=== PATIENT | female | born 1980 | race Caucasian/White ===

== ENCOUNTER 2019-02-06 17:24 | Emergency (ER) | payer BC, MEDICAID ==
[2019-02-06 17:34] VITALS: BP 131/80
[2019-02-06 17:55] LABS: BILIRUBIN,URINE NEGATIVE (NEGATIVE); GLUCOSE, URINE (UA) NEGATIVE (NEGATIVE); KETONES,URINE (UA) NEGATIVE (NEGATIVE); LEUKOCYTE ESTERASE, URINE SMALL (NEGATIVE); NITRITE,URINE NEGATIVE (NEGATIVE); OCCULT BLOOD,URINE MODERATE (NEGATIVE); PROTEIN,URINE NEGATIVE (NEGATIVE); UROBILINOGEN,URINE 0.2 (NORMAL) E.U./dL (NORMAL)
[2019-02-06 17:56] LABS: HCG UR QUAL NEGATIVE
[2019-02-06 17:57] LABS: CLARITY,URINE CLEAR (CLEAR)
[2019-02-06] MEDS ORDERED: cephALEXin 250 MG CAPSULE PO STA (18:10)
--- NOTE | 2019-02-06 18:11 | ED Physician Documentation ---
History of Present Illness - Stated complaint Stated Complaint: FEMALE - Chief complaint Chief Complaint: UTI - History obtained from History obtained from: Patient - History of Present Illness Timing: How many days ago (4) Pain level max: 3 Pain level now: 2 - Additonal information Additional information: 38-year-old female with dysuria, urinary frequency for the past 4 days. Concerned about potential UTI. No fevers. No abdominal pain. No back pain. No vaginal discharge or bleeding. She has breast-feeding Review of Systems Constitutional: denies: Fever, Chills Respiratory: denies: Cough GI: denies: Vomiting : reports: Dysuria, Frequency, Hesitancy. denies: Now EGA Skin: denies: Rash Musculoskeletal: denies: Neck pain, Back pain Neurologic: denies: Headache PD PAST MEDICAL HISTORY - Past Medical History Past Medical History: No Other Past Medical History: DENIES - Past Surgical History Past Surgical History: No - Present Medications Home Medications: Ambulatory Orders Medication Instructions Recorded Confirmed Cephalexin [Keflex] 500 mg PO Q6H #20 capsule 02/06/19 - Allergies Allergies/Adverse Reactions: Allergies Allergy/AdvReac Type Severity Reaction Status Date / Time Sulfa (Sulfonamide Allergy Anaphylaxis Verified 02/06/19 17:34 Antibiotics) - Social History Does the pt smoke?: No Smoking Status: Never smoker Does the pt drink ETOH?: No Does the pt have substance abuse?: No - Immunizations Immunizations are current?: Yes PD ED PE NORMAL - Vitals Vital signs reviewed: Yes - General General: Alert and oriented X 3, No acute distress - HEENT HEENT: Moist mucous membranes - Neck Neck: Supple, no meningeal sign - Cardiac Cardiac: RRR - Respiratory Respiratory: No respiratory distress, Clear bilaterally - Abdomen Abdomen: Soft, Non tender, Non distended - Back Back: No CVA TTP - Derm Derm: Warm and dry, No rash - Neuro Neuro: Alert and oriented X 3 Results - Vitals Vitals: Vital Signs - 24 hr 02/06/19 17:32 Temperature 36 C L Heart Rate 82 Respiratory 18 Rate Blood Pressure 131/80 H O2 Saturation 98 Oxygen O2 Source Room air - Labs Labs: Laboratory Tests 02/06/19 02/06/19 17:30 17:30 Urine Color YELLOW Urine Clarity CLEAR Urine pH 6.0 Ur Specific [place] <=1.005 <=1.005 Urine Protein NEGATIVE Urine Glucose (UA) NEGATIVE Urine Ketones NEGATIVE Urine Occult Blood MODERATE H Urine Nitrite NEGATIVE Urine Bilirubin NEGATIVE Urine Urobilinogen 0.2 (NORMAL) Ur Leukocyte Esterase SMALL H Urine RBC 0-5 Urine WBC 6-10 H Ur Squamous Epith Cells MOD Squamous H Urine Bacteria Rare Ur Microscopic Review INDICATED Urine Culture Comments NOT INDICATED Urine HCG, Qual NEGATIVE PD MEDICAL DECISION MAKING - ED course Complexity details: reviewed results, considered differential, d/w patient ED course: Patient with a UTI. Will place on antibiotics. She is well-appearing, nontoxic. Afebrile. Patient counseled regarding signs and symptoms for which I believe and urgent re-evaluation would be necessary. Patient with good understanding of and agreement to plan and is comfortable going home at this time This document was made in part using voice recognition software. While efforts are made to proofread this document, sound alike and grammatical errors may occur. Departure - Departure Disposition: 01 Home, Self Care Clinical Impression: Urinary tract infection Qualifiers: Urinary tract infection type: acute cystitis Hematuria presence: without hematuria Qualified Code(s): N30.00 - Acute cystitis without hematuria Condition: Good Instructions: ED UTI Cystitis Female Follow-Up: VERONICA STARR MD [Primary Care Provider] - As Needed Prescriptions: Cephalexin [Keflex] 500 mg PO Q6H #20 capsule Comments: Take all antibiotics until gone. Return if you worsen. Your prescription was sent to [facility] in [facility]. Discharge Date/Time: 02/06/19 18:18
[2019-02-06 18:13] LABS: BACTERIA,URINE Rare /HPF (None Seen); RBC,URINE 0-5 /HPF (0-5); SQUAMOUS EPITHELIAL CELL,UR MOD Squamous (<= Few)
== END 2019-02-06 18:18 | disposition home or self-care (01) ==
LOC: ED 17:24
DX: N30.00 Acute cystitis without hematuria (principal)
CPT/HCPCS: 81001; 81003; 81025; 87086; 99283; 99284

== ENCOUNTER 2019-07-16 10:29 | Emergency (ER) | payer MEDICAID ==
[2019-07-16] MEDS ORDERED: ALBUTEROL NEB 2.5 MG/3 ML INH STA (12:23)
--- NOTE | 2019-07-16 12:40 | ED Physician Documentation ---
PD HPI URI - Stated complaint Stated Complaint: SOA - Chief complaint Chief Complaint: Resp - History obtained from History obtained from: Patient - History of Present Illness Timing - onset: How many weeks ago (1.5) Timing duration: Weeks (1.5) Timing details: Gradual onset Pain level max: 3 Pain level now: 2 Associated symptoms: Nasal congestion, Rhinorrhea, Dry cough, Dyspnea (Wheezing). No: Fever, Chills, Ear pain, Sinus pain, Sore throat Contributing factors: Sick contact Improves by: Rest, MDI/nebulizer (Tried her son's albuterol inhaler and that seemed to help her.) Worsened by: Activity, Breathing Similar symptoms before: Diagnosis (States has had asthma in the past) Review of Systems Constitutional: denies: Fever Respiratory: reports: Cough, Wheezing. denies: Hemoptysis GI: denies: Abdominal Pain, Nausea, Vomiting, Diarrhea : denies: Dysuria, Now EGA Musculoskeletal: denies: Neck pain Neurologic: denies: Focal weakness, Numbness, Head injury PD PAST MEDICAL HISTORY - Past Medical History Past Medical History: No - Past Surgical History Past Surgical History: No - Present Medications Home Medications: Ambulatory Orders Medication Instructions Recorded Confirmed Cephalexin [Keflex] 500 mg PO Q6H #20 capsule 02/06/19 Albuterol Sulf [Ventolin Hfa 1 - 2 puffs INH Q4HR PRN #1 inhaler 07/16/19 Inhaler] Benzonatate [Tessalon Perle] 100 - 200 mg PO TID PRN #30 capsule 07/16/19 predniSONE [Prednisone] 40 mg PO DAILY #10 tablet 07/16/19 - Allergies Allergies/Adverse Reactions: Allergies Allergy/AdvReac Type Severity Reaction Status Date / Time Sulfa (Sulfonamide Allergy Anaphylaxis Verified 07/16/19 10:40 Antibiotics) - Social History Does the pt smoke?: No Smoking Status: Never smoker Does the pt drink ETOH?: No Does the pt have substance abuse?: No - Immunizations Immunizations are current?: Yes PD ED PE NORMAL - Vitals Vital signs reviewed: Yes - General General: Alert and oriented X 3, No acute distress, Well developed/nourished - HEENT HEENT: Moist mucous membranes - Neck Neck: Supple, no meningeal sign - Cardiac Cardiac: RRR - Respiratory Respiratory: No respiratory distress, Other (Wheezing, right lower lobe) - Abdomen Abdomen: Soft, Non tender, Non distended - Derm Derm: Warm and dry, No rash - Neuro Neuro: Alert and oriented X 3 - Psych Psych: Normal mood, Normal affect Results - Vitals Vitals: Vital Signs - 24 hr 07/16/19 07/16/19 07/16/19 10:36 12:42 13:53 Temperature 37.1 C 36.7 C Heart Rate 83 84 81 Respiratory 15 14 16 Rate Blood Pressure 142/77 H 113/75 O2 Saturation 100 98 Oxygen O2 Source Room air - Rads (name of study) Chest x-ray Radiology: Prelim report reviewed, EMP read contemporaneously, See rad report (no acute disease) PD MEDICAL DECISION MAKING - ED course Complexity details: reviewed results, re-evaluated patient, considered differential, d/w patient ED course: Patient is well appearing, non-toxic. Afebrile. No hypoxia. no resp distress. Feels better after nebulizer treatment. We will continue supportive care and follow-up with her doctor. Patient counseled regarding signs and symptoms for which I believe and urgent re-evaluation would be necessary. Patient with good understanding of and agreement to plan and is comfortable going home at this time This document was made in part using voice recognition software. While efforts are made to proofread this document, sound alike and grammatical errors may occur. Departure - Departure Disposition: 01 Home, Self Care Clinical Impression: Viral URI Condition: Good Instructions: ED Viral Syndrome Follow-Up: VERONICA STARR MD [Primary Care Provider] - Within 1 week (if not better) Prescriptions: Albuterol Sulf [Ventolin Hfa Inhaler] 1 - 2 puffs INH Q4HR PRN #1 inhaler PRN Reason: Shortness Of Air/Wheezing Benzonatate [Tessalon Perle] 100 - 200 mg PO TID PRN #30 capsule PRN Reason: Cough predniSONE [Prednisone] 40 mg PO DAILY #10 tablet Comments: Use the medications as prescribed. Return if you worsen. Follow-up with your doctor for further care. Discharge Date/Time: 07/16/19 13:53
--- NOTE | 2019-07-16 13:22 | XRAY Report ---
Reason: cough Procedure Date: 07/16/2019 Accession Number: [id number] / [id number] Procedure: XR - Chest 2 View X-Ray CPT Code: 91515 Final Report FULL RESULT: EXAM: CHEST RADIOGRAPHY EXAM DATE: 07/16/2019 12:54 PM. CLINICAL HISTORY: Cough. COMPARISON: None. TECHNIQUE: 2 views. FINDINGS: Lungs/Pleura: No focal opacities evident. No pleural effusion. No pneumothorax. Normal volumes. Mediastinum: Heart and mediastinal contours are unremarkable. Other: None. IMPRESSION: Negative chest RADIA
[2019-07-16 13:53] VITALS: BP 113/75
== END 2019-07-16 13:53 | disposition home or self-care (01) ==
LOC: ED 10:29
DX: J06.9 Acute upper respiratory infection, unspecified (principal); R06.2 Wheezing
CPT/HCPCS: 71046; 94640; 99283; 99284

== ENCOUNTER 2019-10-28 14:46 | Outpatient (CLI) | payer BC | END 2019-10-28 14:47 | disposition home or self-care (01) | LOC: COV 14:46 | PROVIDERS: ATTEND Family Medicine | DX: R05 Cough (principal) | CPT/HCPCS: 81599 ==

== ENCOUNTER 2020-01-05 22:24 | Emergency (ER) | payer BC ==
--- NOTE | 2020-01-05 22:40 | ED Physician Documentation ---
PD HPI LOWER EXT INJURY - Stated complaint Stated Complaint: R FOOT PX - Chief complaint Chief Complaint: Wound - History obtained from History obtained from: Patient (Patient is a 39-year-old female presents with a chief complaint of pain to her right foot. The patient is complaining that she thinks she was stung by something she is having paresthesias to her right foot with swelling and redness she denies any difficulty breathing or chest pain or palpitations patient reports that she was outside when she felt like she was stung by something. Denies any history of anaphylaxis no treatment prior to arrival.) Review of Systems Constitutional: reports: Reviewed and negative Eyes: reports: Reviewed and negative Ears: reports: Reviewed and negative Nose: reports: Reviewed and negative Throat: reports: Reviewed and negative Cardiac: reports: Reviewed and negative Respiratory: reports: Reviewed and negative GI: reports: Reviewed and negative : reports: Reviewed and negative Skin: reports: Bite / sting Musculoskeletal: reports: Extremity pain Neurologic: reports: Reviewed and negative Psychiatric: reports: Reviewed and negative Endocrine: reports: Reviewed and negative Immunocompromised: reports: Reviewed and negative PD PAST MEDICAL HISTORY - Past Medical History Past Medical History: No - Past Surgical History Past Surgical History: No - Present Medications Home Medications: Ambulatory Orders Medication Instructions Recorded Confirmed Cephalexin [Keflex] 500 mg PO Q6H #20 capsule 02/06/19 Albuterol Sulf [Ventolin Hfa 1 - 2 puffs INH Q4HR PRN #1 inhaler 07/16/19 Inhaler] Benzonatate [Tessalon Perle] 100 - 200 mg PO TID PRN #30 capsule 07/16/19 predniSONE [Prednisone] 40 mg PO DAILY #10 tablet 07/16/19 Cephalexin [Keflex] 500 mg PO QID 7 Days #28 capsule 01/06/20 - Allergies Allergies/Adverse Reactions: Allergies Allergy/AdvReac Type Severity Reaction Status Date / Time Sulfa (Sulfonamide Allergy Anaphylaxis Verified 01/05/20 22:33 Antibiotics) - Social History Does the pt smoke?: No Smoking Status: Never smoker Does the pt drink ETOH?: No Does the pt have substance abuse?: No - Immunizations Immunizations are current?: Yes PD ED PE NORMAL - Vitals Vital signs reviewed: Yes - General General: Alert and oriented X 3, No acute distress, Well developed/nourished - HEENT HEENT: PERRL - Neck Neck: Supple, no meningeal sign - Cardiac Cardiac: RRR, No murmur - Respiratory Respiratory: Clear bilaterally - Abdomen Abdomen: Normal bowel sounds, Soft, Non tender, Non distended - Derm Derm: Other (There is evidence of a hymenoptera sting to the lateral Aspect of the right foot.No foreign body identified no evidence of retention of the stinger.) - Extremities Extremities: No deformity, Other (Right foot with no gross deformity but there is tenderness over her a 1 cm area of erythema and evidence of possible hymenoptera envenomation. No stinger noted sensations intact to light touch compartments are soft palpable DP and PT pulses negative calf squeeze no gross deformity.) - Neuro Neuro: Alert and oriented X 3, spectacle truer 2-12 intact, No motor deficit, No sensory deficit, Normal speech - Psych Psych: Normal mood, Normal affect Results - Vitals Vitals: Vital Signs - 24 hr 01/05/20 22:30 Temperature 37.1 C Heart Rate 106 H Respiratory 16 Rate Blood Pressure 129/87 H O2 Saturation 100 Oxygen O2 Source Room air PD MEDICAL DECISION MAKING - ED course Complexity details: reviewed results, re-evaluated patient, considered differential (History and physical are consistent with hymenoptera envenomation will treat with ice, elevation, ibuprofen and Benadryl. She should follow-up with her primary care provider today for recheck.), d/w patient, d/w family Departure - Departure Disposition: 01 Home, Self Care Clinical Impression: Hymenoptera sting Qualifiers: Encounter type: initial encounter Injury intent: undetermined intent Qualified Code(s): T63.484A - Toxic effect of venom of other arthropod, undetermined, initial encounter Condition: Stable Instructions: ED Bite Sting Insect Gen Allergic React Follow-Up: VERONICA STARR MD [Primary Care Provider] - 01/06/20 Prescriptions: Cephalexin [Keflex] 500 mg PO QID 7 Days #28 capsule Comments: Follow-up with your primary care provider today. Ice several times daily keep your foot elevated. Take 50 mg of Benadryl as needed every 6 hours. If you develop signs of cellulitis such as worsening redness or swelling and fevers initiate treatment with Keflex.
[2020-01-05] MEDS ORDERED: IBUPROFEN 800 MG TABLET PO STA (22:50)
[2020-01-05] MEDS ORDERED: diphenhydrAMINE 25 MG CAPSULE PO STA (22:50)
[2020-01-06 00:17] VITALS: BP 126/88
--- NOTE | 2020-01-06 08:08 | XRAY Report ---
Reason: pain Procedure Date: 01/05/2020 Accession Number: [id number] / [id number] Procedure: XR - Foot 3 View RT CPT Code: Final Report FULL RESULT: PROCEDURE: Foot 3 View RT INDICATIONS: pain TECHNIQUE: 3 views of the foot were acquired. COMPARISON: None FINDINGS: Bones: No fractures or dislocations. No suspicious bony lesions. Soft tissues: No tibiotalar joint effusion. Achilles tendon appears normal. IMPRESSION: No visualized acute fracture or dislocation. However, occult injury cannot be excluded. Recommend short interval imaging follow-up in 7-10 days as clinically indicated for additional evaluation. The above findings are concordant with preliminary report. Reviewed by: Sona Medrano MD on 01/06/2020 8:07 AM PDT Approved by: Sona Medrano MD on 01/06/2020 8:07 AM PDT Station ID: [id number]
== END 2020-01-06 00:18 | disposition home or self-care (01) ==
LOC: ED 22:24
DX: T63.481A Toxic effect of venom of other arthropod, accidental (unintentional), initial encounter (principal); M79.89 Other specified soft tissue disorders; X58.XXXA Exposure to other specified factors, initial encounter; Y93.89 Activity, other specified
CPT/HCPCS: 73630; 99283; 99284; A9270

== ENCOUNTER 2020-01-18 12:40 | Outpatient (CLI) | payer BC ==
[2020-01-18] MEDS ORDERED: IOVERSOL 320 100 ML VIAL IVP ONE ×2 (13:02→15:00)
--- NOTE | 2020-01-18 16:17 | CT Report ---
PROCEDURE: SOFT TISSUE NECK W INDICATIONS: CERVICALGIA CONTRAST: IV CONTRAST: Optiray 320 ml: 100 PO CONTRAST: *NO PO CONTRAST TECHNIQUE: After the administration of intravenous contrast, 3.0 mm axial sections acquired from the sella to th e aortic arch. Additional oblique axial 3.0 mm sections acquired through the pharynx. 3 mm thick co elham reformats were generated. For radiation dose reduction, the following was used: automated exp osure control, adjustment of mA and/or kV according to patient size. COMPARISON: None. FINDINGS: Image quality: Excellent. Lymph nodes: No enlarged lymph nodes seen throughout the neck. Vessels: Visualized vasculature appears patent. Neck spaces: The oropharynx, nasopharynx, and pharynx demonstrate no mucosal lesions. The vocal cor ds, false vocal cords, pyriform sinuses, epiglottis, vallecula, and tongue base all appear normal. E xtramucosal spaces appear unremarkable. Glands: The parotid and submandibular glands appear normal. The thyroid is normal in size. Miscellaneous: Visualized brain and orbits appear normal. Lung apices appear clear. Superficial so ft tissues appear normal. Bones: No suspicious bony lesions. Bilateral mastoids appear unremarkable. Mild mucosal thickening in bilateral maxillary sinuses are seen. Degenerative endplate changes in lower lumbar spine at C5-6 and C6-7 levels are seen. IMPRESSION: 1. No neck soft tissue mass or fluid collection. No neck soft tissue lymphadenopathy by size criteria . 2. Airway is patent. 3. Degenerative disc disease in lower cervical spine. 4. Very mild mucosal thickening in bilateral maxillary sinuses. Reviewed by: Major Fitzpatrick MD on 01/18/2020 4:16 PM PDT Approved by: Major Fitzpatrick MD on 01/18/2020 4:16 PM PDT Station ID: [id number]
== END 2020-01-18 12:41 | disposition home or self-care (01) ==
LOC: DI 12:40
PROVIDERS: ATTEND Otolaryngology
DX: M50.323 Other cervical disc degeneration at C6-C7 level (principal)
CPT/HCPCS: 70491; Q9967

== ENCOUNTER 2020-01-26 15:48 | Outpatient (CLI) | payer BC ==
[2020-01-26 18:01] LABS: BASOPHILS # (AUTO) 0.1 10^3/uL (0.0-0.1); EOSINOPHILS # (AUTO) 0.2 10^3/uL (0.0-0.7); EOSINOPHILS % (AUTO) 2.6 %; HGB - HEMOGLOBIN 13.6 g/dL (12.0-16.0); LYMPHOCYTES # (AUTO) 1.8 10^3/uL (1.5-3.5); MEAN CORPUSCULAR HEMOGLOBIN 31.1 pg (27.0-31.0); MEAN CORPUSCULAR HGB CONC 33.3 g/dL (32.0-36.0); MEAN CORPUSCULAR VOLUME 93.4 fL (81.0-99.0); MEAN PLATELET VOLUME 10.1 fL (7.9-10.8); MONOCYTES # (AUTO) 0.3 10^3/uL (0.0-1.0); NEUTROPHILS % (AUTO) 68.1 %; PLT - PLATELET COUNT 211 10^3/uL (130-450); RED BLOOD COUNT 4.38 10^6/uL (4.20-5.40); RED CELL DISTRIBUTION WIDTH 12.3 % (12.0-15.0); WHITE BLOOD COUNT 7.3 x10^3/uL (4.8-10.8)
[2020-01-26 18:13] LABS: CREATININE 0.8 mg/dL (0.4-1.0)
[2020-01-26 18:19] LABS: THYROID STIMULATING HORMONE 0.55 uIU/mL (0.34-5.60)
[2020-01-26 18:25] LABS: FERRITIN 14.2 ng/mL (11.0-306.8)
== END 2020-01-26 15:49 | disposition home or self-care (01) ==
LOC: LAB.S 15:48
PROVIDERS: ATTEND Internal Medicine
DX: R53.83 Other fatigue (principal)
CPT/HCPCS: 36415; 80048; 82728; 83540; 84443; 84466; 85025

== ENCOUNTER 2020-07-06 17:34 | Outpatient (CLI) | payer MEDICAID ==
[2020-07-06 20:08] LABS: BILIRUBIN,URINE NEGATIVE (NEGATIVE); GLUCOSE, URINE (UA) NEGATIVE (NEGATIVE); KETONES,URINE (UA) NEGATIVE (NEGATIVE); LEUKOCYTE ESTERASE, URINE TRACE (NEGATIVE); NITRITE,URINE NEGATIVE (NEGATIVE); OCCULT BLOOD,URINE NEGATIVE (NEGATIVE); PROTEIN,URINE NEGATIVE (NEGATIVE); UROBILINOGEN,URINE 0.2 (NORMAL) E.U./dL (NORMAL)
[2020-07-06 20:22] LABS: BACTERIA,URINE Rare /HPF (None Seen); CLARITY,URINE CLEAR (CLEAR); RBC,URINE None Seen /HPF (0-5); SQUAMOUS EPITHELIAL CELL,UR MOD Squamous (<= Few)
== END 2020-07-06 17:35 | disposition home or self-care (01) ==
LOC: LAB.S 17:34
PROVIDERS: ATTEND Internal Medicine
DX: R39.9 Unspecified symptoms and signs involving the genitourinary system (principal)
CPT/HCPCS: 81001; 87086

== ENCOUNTER 2020-07-15 18:19 | Outpatient (CLI) | payer MEDICAID ==
--- NOTE | 2020-07-16 10:00 | XRAY Report ---
PROCEDURE: Lumbar Spine 2 View INDICATIONS: LOW BACK PAIN TECHNIQUE: 2 views of the lumbar spine were acquired. COMPARISON: None. FINDINGS: Bones: 5 exi-[id number]-araiufi vertebrae are present. There is slightly dextroscoliotic bony alignment, c entered at L2. No vertebral body compression fractures. No suspicious bony lesions. Soft tissues: Overlying bowel gas pattern is normal. No suspicious soft tissue calcifications. IMPRESSION: Slight dextroscoliosis of the upper lumbar spine, no trauma found, no subluxation identi fied. Mild facet osteoarthritis appears present at L4-5 and L5-S1. Reviewed by: David Montague MD on 07/16/2020 9:59 AM PST Approved by: David Montague MD on 07/16/2020 9:59 AM PST Station ID: [id number]
== END 2020-07-15 18:20 | disposition home or self-care (01) ==
LOC: DI.S 18:19
DX: M47.817 Spondylosis without myelopathy or radiculopathy, lumbosacral region (principal); M41.86 Other forms of scoliosis, lumbar region; R10.30 Lower abdominal pain, unspecified; Q64.9 Congenital malformation of urinary system, unspecified

== ENCOUNTER 2020-08-18 09:10 | Outpatient (CLI) | payer MEDICAID | END 2020-08-18 23:59 | disposition home or self-care (01) | LOC: COV 09:10 | PROVIDERS: ATTEND Family Medicine | DX: M79.10 Myalgia, unspecified site (principal); R53.83 Other fatigue; R09.81 Nasal congestion; J34.89 Other specified disorders of nose and nasal sinuses; Z20.822 Contact with and (suspected) exposure to COVID-19 ==

== ENCOUNTER 2020-10-10 09:22 | Outpatient (CLI) | payer MEDICAID ==
[2020-10-10 15:31] LABS: % IRON SATURATION 23 % (20-50); CHOL/HDL RATIO 3.1 (<4.4); CHOLESTEROL 198 mg/dL; HDL CHOLESTEROL 64 mg/dL; IRON 95 ug/dL (28-170); LDL CHOLESTEROL,CALCULATED 126 mg/dL; TOTAL IRON BINDING CAPACITY 421 ug/dL (250-450); TRANSFERRIN 301 mg/dL (192-382); TRIGLYCERIDES 40 mg/dL; VLDL CHOLESTEROL 8 mg/dL
[2020-10-10 15:39] LABS: THYROID STIMULATING HORMONE 0.68 uIU/mL (0.34-5.60)
[2020-10-10 15:45] LABS: FERRITIN 16.5 ng/mL (11.0-306.8)
[2020-10-10 20:53] LABS: ESTIMATED AVERAGE GLUCOSE 88 mg/dL (70-100); HEMOGLOBIN A1c% 4.7 % (4.27-6.07)
== END 2020-10-10 09:23 | disposition home or self-care (01) ==
LOC: LAB.S 09:22
PROVIDERS: ATTEND Nurse Practitioner
DX: R53.83 Other fatigue (principal)
CPT/HCPCS: 36415; 80061; 81599; 82306; 82728; 83036; 83525; 83540; 83721; 84443; 84466

== ENCOUNTER 2021-04-11 09:37 | Emergency (ER) | payer MEDICAID ==
[2021-04-11 10:26] LABS: BASOPHILS # (AUTO) 0.1 10^3/uL (0.0-0.1); EOSINOPHILS # (AUTO) 0.4 10^3/uL (0.0-0.7); HCT - HEMATOCRIT 43.6 % (37.0-47.0); HGB - HEMOGLOBIN 14.3 g/dL (12.0-16.0); LYMPHOCYTES # (AUTO) 1.4 10^3/uL (1.5-3.5); LYMPHOCYTES % (AUTO) 23.6 %; MEAN CORPUSCULAR HEMOGLOBIN 30.5 pg (27.0-31.0); MEAN CORPUSCULAR HGB CONC 32.8 g/dL (32.0-36.0); MEAN PLATELET VOLUME 10.4 fL (7.9-10.8); MONOCYTES # (AUTO) 0.4 10^3/uL (0.0-1.0); MONOCYTES % (AUTO) 6.9 %; NEUTROPHILS # (AUTO) 3.8 10^3/uL (1.5-6.6); NEUTROPHILS % (AUTO) 61.3 %; PLT - PLATELET COUNT 179 10^3/uL (130-450); RED BLOOD COUNT 4.69 10^6/uL (4.20-5.40); RED CELL DISTRIBUTION WIDTH 12.2 % (12.0-15.0); WHITE BLOOD COUNT 6.1 x10^3/uL (4.8-10.8)
--- NOTE | 2021-04-11 10:33 | ED Physician Documentation ---
History of Present Illness - Stated complaint Stated Complaint: CHEST PX - Chief complaint Chief Complaint: Cardiac - History obtained from History obtained from: Patient - Additonal information Additional information: Patient comes emergency department chief complaint of a throbbing feeling with her heartbeat for about the last week, increasing. She states that it will last for a few beats and then go away. She states initially, she would just feel it once in a while, but now, she has had the impulse a few times a minute over the course of this morning. She states nothing really seems to make it better or worse. She has gone on a walk the last few days and did not have any chest pain. She denies any shortness of breath, nausea, or lightheadedness. She states that she was not ill with anything prior. Patient denies any history of coronary artery disease, DVT, PE, or CVA and herself. No history in the family in the 30s or 40s. 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 She does note that she has been very stressed out about Covid and that her toddler has been up a lot at night. She states this is because some increased stress but that the patient has had anxiety for quite some time and does not feel like that has been any worse lately. She does note that anxiety runs in her family. Patient denies any consistent mechanical component to her chest pain. No recent fever or other illness. No swelling or pain in her calves. She did bump her elbow and has the same throbbing pain in the elbow but has not had any swelling of her upper extremities. No history of dysrhythmia. No other complaints at this time. Review of Systems Ten Systems: 10 systems reviewed and negative Constitutional: reports: Reviewed and negative Eyes: reports: Reviewed and negative Ears: reports: Reviewed and negative Nose: reports: Reviewed and negative Throat: reports: Reviewed and negative Cardiac: reports: Chest pain / pressure Respiratory: reports: Reviewed and negative GI: reports: Reviewed and negative : reports: Reviewed and negative Skin: reports: Reviewed and negative Musculoskeletal: reports: Reviewed and negative Neurologic: reports: Reviewed and negative Psychiatric: reports: Reviewed and negative Endocrine: reports: Reviewed and negative Immunocompromised: reports: Reviewed and negative PD PAST MEDICAL HISTORY - Past Medical History Past Medical History: Yes Cardiovascular: None Respiratory: Asthma Neuro: None Endocrine/Autoimmune: None GI: None COURT COMMISSIONER: None : None HEENT: None Psych: None Musculoskeletal: None Derm: None - Past Surgical History Past Surgical History: Yes - Present Medications Home Medications: Ambulatory Orders Medication Instructions Recorded Confirmed [place]-3/Dha/Epa/Fish Oil [Fish Oil 1 each PO DAILY 04/11/21 04/11/21 1,000 mg Softgel] - Allergies Allergies/Adverse Reactions: Allergies Allergy/AdvReac Type Severity Reaction Status Date / Time ibuprofen Allergy Anaphylaxis Verified 04/11/21 09:40 Sulfa (Sulfonamide Allergy Anaphylaxis Verified 04/11/21 09:40 Antibiotics) - Social History Does the pt smoke?: No Smoking Status: Never smoker Does the pt drink ETOH?: No Does the pt have substance abuse?: No - Immunizations Immunizations are current?: Yes PD ED PE NORMAL - Vitals Vital signs reviewed: Yes - General General: Alert and oriented X 3, No acute distress, Well developed/nourished - HEENT HEENT: Atraumatic, PERRL, EOMI, Moist mucous membranes - Neck Neck: Supple, no meningeal sign - Cardiac Cardiac: RRR, No murmur, Strong equal pulses - Respiratory Respiratory: No respiratory distress, Clear bilaterally - Abdomen Abdomen: Soft, Non tender, Non distended - Derm Derm: Normal color, Warm and dry, No rash - Extremities Extremities: No deformity, No edema - Neuro Neuro: Alert and oriented X 3, set up worker 2-12 intact, No motor deficit, No sensory deficit, Normal speech - Psych Psych: Normal mood, Normal affect Results - Vitals Vitals: Oxygen O2 Source Room air - EKG (time done) 0951 Rate: Rate (enter#) (81) Rhythm: NSR [place]: Normal Intervals: Normal MA QRS: Normal Ischemia: Normal ST segments Compare to prior EKG: Old EKG unavailable Computer interpretation: Agree with computer - Labs Labs: Laboratory Tests 04/11/21 04/11/21 04/11/21 10:18 10:18 10:18 WBC 6.1 RBC 4.69 Hgb 14.3 Hct 43.6 MCV 93.0 MCH 30.5 MCHC 32.8 RDW 12.2 Plt Count 179 MPV 10.4 Neut # (Auto) 3.8 Lymph # (Auto) 1.4 L [place] # (Auto) 0.4 Eos # (Auto) 0.4 Baso # (Auto) 0.1 Absolute Nucleated RBC 0.00 Nucleated RBC % 0.0 ESR D-Dimer Sodium 139 Potassium 4.0 Chloride 105 Carbon Dioxide 25 Anion Gap 9.0 BUN 10 Creatinine 0.8 Estimated GFR (MDRD) 79 L Glucose 90 Calcium 9.5 Total Bilirubin 0.7 AST 23 ALT 19 Alkaline Phosphatase 39 L Troponin I High Sens < 2.3 L C-Reactive Protein Total Protein 7.7 Albumin 4.7 Globulin 3.0 Albumin/Globulin Ratio 1.6 Lipase 36 04/11/21 04/11/21 04/11/21 10:18 10:18 10:57 WBC RBC Hgb Hct MCV MCH MCHC RDW Plt Count MPV Neut # (Auto) Lymph # (Auto) [place] # (Auto) Eos # (Auto) Baso # (Auto) Absolute Nucleated RBC Nucleated RBC % ESR 1 D-Dimer < 200.0 L Sodium Potassium Chloride Carbon Dioxide Anion Gap BUN Creatinine Estimated GFR (MDRD) Glucose Calcium Total Bilirubin AST ALT Alkaline Phosphatase Troponin I High Sens C-Reactive Protein 1.5 H Total Protein Albumin Globulin Albumin/Globulin Ratio Lipase 04/11/21 12:48 WBC RBC Hgb Hct MCV MCH MCHC RDW Plt Count MPV Neut # (Auto) Lymph # (Auto) [place] # (Auto) Eos # (Auto) Baso # (Auto) Absolute Nucleated RBC Nucleated RBC % ESR D-Dimer Sodium Potassium Chloride Carbon Dioxide Anion Gap BUN Creatinine Estimated GFR (MDRD) Glucose Calcium Total Bilirubin AST ALT Alkaline Phosphatase Troponin I High Sens < 2.3 L C-Reactive Protein Total Protein Albumin Globulin Albumin/Globulin Ratio Lipase PD MEDICAL DECISION MAKING - ED course Complexity details: reviewed results, re-evaluated patient, considered d ifferential, d/w patient ED course: The patient was fairly well-appearing in the emergency department, and throughout our conversation, displayed no ectopy on the monitor whatsoever. I discussed with her that she is extremely low risk for coronary artery disease. She was a smoker in her teens to early 20s but is far out of range for this being a risk factor now. She was worked up with labs, EKG, and chest x-ray initially. Patient's work-up was unremarkable. We have discussed home management of symptoms, as well as usual indications for return. The patient is extremely low risk for coronary artery disease and I do not feel this is likely to be the cause of her symptoms. Departure - Departure Disposition: 01 Home, Self Care Clinical Impression: Chest pain Qualifiers: Chest pain type: unspecified Qualified Code(s): R07.9 - Chest pain, unspecified Condition: Stable Instructions: ED Chest Pain Atypical Unkn Cause Comments: Your labs, chest x-ray, and EKG look great. Your potassium is 4.0 today. Both of your troponins are normal. It is not clear what is causing the pulses of chest pain that you are having, but it is important that you follow-up with your primary care physician to discuss whether further investigation is needed. Discharge Date/Time: 04/11/21 14:09
--- NOTE | 2021-04-11 10:35 | XRAY Report ---
PROCEDURE: Chest 1 View X-Ray INDICATIONS: Chest pain TECHNIQUE: One view of the chest was acquired. COMPARISON: CXR 07/16/2019. FINDINGS: Surgical changes and devices: None. Lungs and pleura: No pleural effusions or pneumothorax. Lungs are clear. Mediastinum: Mediastinal contours appear normal. Heart size is normal. Bones and chest wall: No suspicious bony lesions. Overlying soft tissues appear unremarkable. IMPRESSION: No acute cardiopulmonary abnormality. Reviewed by: Carlos Levine MD on 04/11/2021 9:34 AM TERESA Approved by: Carlos Levine MD on 04/11/2021 9:34 AM TERESA Station ID: [id number]
[2021-04-11 10:38] LABS: ALBUMIN 4.7 g/dL (3.2-5.5); ALBUMIN/GLOBULIN RATIO 1.6 (1.0-2.2); BILIRUBIN,TOTAL 0.7 mg/dL (0.2-1.0); CALCIUM 9.5 mg/dL (8.5-10.3); CREATININE 0.8 mg/dL (0.4-1.0); TOTAL PROTEIN 7.7 g/dL (6.7-8.2)
[2021-04-11 14:09] VITALS: BP 118/80
== END 2021-04-11 14:09 | disposition home or self-care (01) ==
LOC: ED 09:37
DX: R07.9 Chest pain, unspecified (principal); Z87.891 Personal history of nicotine dependence
CPT/HCPCS: 36415; 80053; 83690; 84484; 85025; 85379; 85651; 86140; 93005; 99283; 99284

== ENCOUNTER 2021-04-27 10:07 | Outpatient (CLI) | payer MEDICAID ==
--- NOTE | 2021-04-27 11:09 | XRAY Report ---
PROCEDURE: Shoulder 3 View RT INDICATIONS: JOINT PAIN TECHNIQUE: 3 views of the shoulder were acquired. COMPARISON: None. FINDINGS: Bones: No fractures or dislocations. Mild to moderate acromioclavicular joint osteoarthritic change s are seen. Mild glenohumeral joint osteoarthritic changes also noted. No suspicious bony lesions. V isualized ribs appear intact. Soft tissues: No suspicious soft tissue calcifications. 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 No fracture or dislocatio n. No gross soft tissue abnormality. Reviewed by: Major Fitzpatrick MD on 04/27/2021 11:08 AM PDT Approved by: Major Fitzpatrick MD on 04/27/2021 11:08 AM PDT Station ID: [id number]
--- NOTE | 2021-04-27 11:50 | XRAY Report ---
PROCEDURE: Knee 2 View RT INDICATIONS: RIGHT KNEE PAIN TECHNIQUE: 2 views of the right knee(s) were acquired. COMPARISON: None. FINDINGS: Bones: No fractures or dislocations. No suspicious bony lesions. Soft tissues: No joint effusion. No suspicious soft tissue calcifications. IMPRESSION: No evidence acute bony abnormality of the right knee. If clinical suspicion and/or symptoms persist, further assessment with repeat plain films or advanced imaging (e.g., CT, MRI, or bone scan) may be helpful for further assessment. Reviewed by: Nick Scott MD on 04/27/2021 11:49 AM PDT Approved by: Nick Scott MD on 04/27/2021 11:49 AM PDT Station ID: [id number]
--- NOTE | 2021-04-27 12:48 | XRAY Report ---
PROCEDURE: Elbow 3 View RT INDICATIONS: JOINT PAIN TECHNIQUE: 3 views of the elbow were acquired. COMPARISON: None FINDINGS: Bones: No fractures or dislocations. No suspicious bony lesions. Soft tissues: No elbow joint effusion. No suspicious soft tissue calcifications. IMPRESSION: 1. No suspicious calcifications or joint effusions. Reviewed by: Yasmin Cooper MD on 04/27/2021 12:46 PM PDT Approved by: Yasmin Cooper MD on 04/27/2021 12:46 PM PDT Station ID: [id number]
[2021-04-27 15:34] LABS: CHOL/HDL RATIO 3.1 (<4.4); CHOLESTEROL 200 mg/dL; HDL CHOLESTEROL 64 mg/dL; LDL CHOLESTEROL,CALCULATED 123 mg/dL; LDL/HDL RATIO 1.9 (<4.4); TRIGLYCERIDES 67 mg/dL; VLDL CHOLESTEROL 13 mg/dL
== END 2021-04-27 10:08 | disposition home or self-care (01) ==
LOC: DI.S 10:07
PROVIDERS: ATTEND Internal Medicine
DX: Z00.00 Encounter for general adult medical examination without abnormal findings (principal); M25.521 Pain in right elbow; M25.561 Pain in right knee; M19.011 Primary osteoarthritis, right shoulder
CPT/HCPCS: 36415; 80061; 83721

== ENCOUNTER 2021-06-27 17:56 | Emergency (ER) | payer MEDICAID ==
[2021-06-27 18:02] VITALS: BP 153/83
--- NOTE | 2021-06-27 18:13 | ED Physician Documentation ---
PD HPI HEENT - Stated complaint Stated Complaint: RIGHT SIDE EAR NECK & FACE PX - Chief complaint Chief Complaint: Heent - History obtained from History obtained from: Patient - Additional information Additional information: 40-year-old with no possibility of has had about 2 weeks of increasingly severe pain near the right angle of the jaw and ear. Its worse with chewing and opening the mouth. No associated fevers or chills. She was seen by telehealth physician and diagnosed with presumed external otitis and started on ofloxacin drops which have not been helpful. Review of Systems Constitutional: reports: Reviewed and negative Eyes: reports: Reviewed and negative Ears: reports: Reviewed and negative Nose: reports: Reviewed and negative PD PAST MEDICAL HISTORY - Past Medical History Cardiovascular: None Respiratory: Asthma Neuro: None Endocrine/Autoimmune: None GI: None HEALTH SPECIALIST: None : None HEENT: None Psych: None Musculoskeletal: None Derm: None - Past Surgical History Past Surgical History: Yes - Present Medications Home Medications: Ambulatory Orders Medication Instructions Recorded Confirmed [place]-3/Dha/Epa/Fish Oil [Fish Oil 1 each PO DAILY 04/11/21 04/11/21 1,000 mg Softgel] Amox/Clav 875/125 [Augmentin] 1 each PO Q12H #14 tablet 06/27/21 - Allergies Allergies/Adverse Reactions: Allergies Allergy/AdvReac Type Severity Reaction Status Date / Time ibuprofen Allergy Anaphylaxis Verified 06/27/21 18:02 Sulfa (Sulfonamide Allergy Anaphylaxis Verified 06/27/21 18:02 Antibiotics) - Social History Does the pt smoke?: No Smoking Status: Never smoker Does the pt drink ETOH?: No Does the pt have substance abuse?: No - Immunizations Immunizations are current?: Yes PD ED PE NORMAL - Vitals Vital signs reviewed: Yes - General General: Alert and oriented X 3, No acute distress - HEENT HEENT: Ears normal, Pharynx benign - Neck Neck: Other (Both TMs and canals look grossly normal. There is some mild right submandibular tenderness with a suggestion of fullness there versus adenopathy. Supple neck.) - Neuro Neuro: Alert and oriented X 3, Normal speech Results - Vitals Vitals: Vital Signs - 24 hr 06/27/21 17:59 Temperature 36.5 C Heart Rate 79 Respiratory 16 Rate Blood Pressure 153/83 H O2 Saturation 100 Oxygen O2 Source Room air - Labs Labs: Laboratory Tests 06/27/21 06/27/21 18:30 18:30 WBC 8.5 RBC 4.26 Hgb 12.9 Hct 39.2 MCV 92.0 MCH 30.3 MCHC 32.9 RDW 12.0 Plt Count 212 MPV 9.8 Neut # (Auto) 5.3 Lymph # (Auto) 1.9 [place] # (Auto) 0.6 Eos # (Auto) 0.5 Baso # (Auto) 0.1 Absolute Nucleated RBC 0.00 Nucleated RBC % 0.0 Sodium 137 Potassium 3.9 Chloride 103 Carbon Dioxide 26 Anion Gap 8.0 BUN 14 Creatinine 0.7 Estimated GFR (MDRD) 93 Glucose 98 Calcium 9.3 PD MEDICAL DECISION MAKING - ED course ED course: 40-year-old woman with pain that seems localized to the right submandibular gland. Examination is pretty normal though. The history is not consistent with trigeminal neuralgia. CT done without pertinent positive findings. That said I suspect she has a mild case of submandibular adenitis or gland infection treated with Augmentin. Departure - Departure Disposition: 01 Home, Self Care Clinical Impression: Neck pain Condition: Good Record reviewed to determine appropriate education?: Yes Prescriptions: Amox/Clav 875/125 [Augmentin] 1 each PO Q12H #14 tablet Comments: As discussed, your CAT scan is normal as are your labs. Seems most consistent with a submandibular gland infection on the right, that said if so it is not bad enough to show up on the CT or your labs. Return for new or worsening symptoms. If you persistently have symptoms, reasonable to follow-up with ENT in [place]. Discharge Date/Time: 06/27/21 19:36
[2021-06-27] MEDS ORDERED: IOVERSOL 320 100 ML VIAL IVP ONE ×2 (18:21→18:54)
[2021-06-27 18:36] LABS: BASOPHILS # (AUTO) 0.1 10^3/uL (0.0-0.1); BASOPHILS % (AUTO) 1.2 %; EOSINOPHILS # (AUTO) 0.5 10^3/uL (0.0-0.7); EOSINOPHILS % (AUTO) 5.9 %; HCT - HEMATOCRIT 39.2 % (37.0-47.0); HGB - HEMOGLOBIN 12.9 g/dL (12.0-16.0); LYMPHOCYTES # (AUTO) 1.9 10^3/uL (1.5-3.5); LYMPHOCYTES % (AUTO) 22.3 %; MEAN CORPUSCULAR HEMOGLOBIN 30.3 pg (27.0-31.0); MEAN CORPUSCULAR HGB CONC 32.9 g/dL (32.0-36.0); MEAN PLATELET VOLUME 9.8 fL (7.9-10.8); MONOCYTES # (AUTO) 0.6 10^3/uL (0.0-1.0); MONOCYTES % (AUTO) 7.2 %; NEUTROPHILS # (AUTO) 5.3 10^3/uL (1.5-6.6); PLT - PLATELET COUNT 212 10^3/uL (130-450); RED BLOOD COUNT 4.26 10^6/uL (4.20-5.40); WHITE BLOOD COUNT 8.5 x10^3/uL (4.8-10.8)
[2021-06-27 18:45] LABS: CALCIUM 9.3 mg/dL (8.5-10.3); CREATININE 0.7 mg/dL (0.4-1.0); POTASSIUM 3.9 mmol/L (3.5-5.0)
--- NOTE | 2021-06-27 19:12 | CT Report ---
PROCEDURE: SOFT TISSUE NECK W INDICATIONS: R neck pain, no need to wait 4 labs CONTRAST: IV CONTRAST: Optiray 320 ml: 100 PO CONTRAST: *NO PO CONTRAST TECHNIQUE: After the administration of intravenous contrast, 3.0 mm axial sections acquired from the sella to th e aortic arch. Additional oblique axial 3.0 mm sections acquired through the pharynx. 3 mm thick co elham reformats were generated. For radiation dose reduction, the following was used: automated exp osure control, adjustment of mA and/or kV according to patient size. COMPARISON: None. FINDINGS: Image quality: Excellent. Lymph nodes: No enlarged lymph nodes seen throughout the neck. Vessels: Visualized vasculature appears patent. Neck spaces: The oropharynx, nasopharynx, and pharynx demonstrate no mucosal lesions. The vocal cor ds, false vocal cords, pyriform sinuses, epiglottis, vallecula, and tongue base all appear normal. E xtramucosal spaces appear unremarkable. Glands: The parotid and submandibular glands appear normal. The thyroid is normal in size and there are no incidental findings. Miscellaneous: Visualized brain and orbits appear normal. Lung apices appear clear. Superficial so ft tissues appear normal. Bones: No suspicious bony lesions. Mild bilateral maxillary sinus disease. IMPRESSION: No abscess. No pathologically enlarged lymphadenopathy or mass lesion identified. CLINICAL RECOMMENDATION STATEMENTS: In patients <35 years with an ITN detected on CT, MRI, or extrathyroidal ultrasound, the Committee re commends further evaluation with dedicated thyroid ultrasound if the nodule is "e1 cm and has no susp icious imaging features, and if the patient has normal life expectancy. In patients "e35 years with an ITN detected on CT, MRI, or extrathyroidal ultrasound, the Committee r ecommends further evaluation with dedicated thyroid ultrasound if the nodule is "e1.5 cm and has no s uspicious imaging features, and if the patient has normal life expectancy. (ACR, 2014) Reviewed by: Edison Chen MD on 06/27/2021 7:10 PM PST Approved by: Edison Chen MD on 06/27/2021 7:10 PM PST Station ID: [id number]
[2021-06-27] MEDS ORDERED: AMOX/CLAV 875 MG/125 MG TABLET PO STA (19:27)
== END 2021-06-27 19:36 | disposition home or self-care (01) ==
LOC: ED 17:56
DX: M54.2 Cervicalgia (principal)
CPT/HCPCS: 36415; 70491; 80048; 85025; 99284; A9270; Q9967

== ENCOUNTER 2021-11-07 14:14 | Outpatient (CLI) | payer MEDICAID ==
--- NOTE | 2021-11-07 14:34 | XRAY Report ---
PROCEDURE: Chest 2 View X-Ray INDICATIONS: ARRYTHMIA, VENTRICULAR, LEUKOCYTOSIS TECHNIQUE: 2 view(s) of the chest. COMPARISON: 07/16/2019. FINDINGS: Surgical changes and devices: None. Lungs and pleura: No pleural effusions or pneumothorax. Lungs are clear. Mediastinum: Mediastinal contours are normal. Heart size is normal. Bones and chest wall: No suspicious bony abnormalities. Soft tissues appear unremarkable. IMPRESSION: No acute cardiopulmonary disease process. Reviewed by: Kym Frank MD, PhD on 11/07/2021 2:32 PM PDT Approved by: Kym Frank MD, PhD on 11/07/2021 2:32 PM PDT Station ID: [id number]
== END 2021-11-07 14:15 | disposition home or self-care (01) ==
LOC: DI.S 14:14
PROVIDERS: ATTEND Student in an Organized Health Care Education/Training Program
DX: I49.8 Other specified cardiac arrhythmias (principal); D72.829 Elevated white blood cell count, unspecified

== ENCOUNTER 2021-11-22 17:23 | Emergency (ER) | payer MEDICAID ==
[2021-11-22 17:28] VITALS: BP 136/85
--- NOTE | 2021-11-22 17:38 | ED Physician Documentation ---
PD HPI FEMALE - Stated complaint Stated Complaint: FEMALE - Chief complaint Chief Complaint: UTI - History obtained from History obtained from: Patient (41-year-old woman who has only infrequent UTIs developed burning dysuria and frequency about a week ago. She took several days worth of oxacillin during which time she did get better but then dysuria and burning came back as well as low back pain. 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: None : None HEENT: None Psych: None Musculoskeletal: None Derm: None - Past Surgical History Past Surgical History: Yes - Present Medications Home Medications: Ambulatory Orders Medication Instructions Recorded Confirmed [place]-3/Dha/Epa/Fish Oil [Fish Oil 1 each PO DAILY 04/11/21 04/11/21 1,000 mg Softgel] Amox/Clav 875/125 [Augmentin] 1 each PO Q12H #14 tablet 06/27/21 Cefdinir 300 mg PO BID #14 cap 11/22/21 - Allergies Allergies/Adverse Reactions: Allergies Allergy/AdvReac Type Severity Reaction Status Date / Time ibuprofen Allergy Anaphylaxis Verified 11/22/21 17:28 Sulfa (Sulfonamide Allergy Anaphylaxis Verified 11/22/21 17:28 Antibiotics) - Social History Does the pt smoke?: No Smoking Status: Never smoker Does the pt drink ETOH?: No Does the pt have substance abuse?: No - Immunizations Immunizations are current?: Yes PD ED PE NORMAL - Vitals Vital signs reviewed: Yes - General General: Alert and oriented X 3, No acute distress - Abdomen Abdomen: Normal bowel sounds, Soft, Non tender - Back Back: No CVA TTP - Extremities Extremities: No edema, No calf tenderness / cord - Neuro Neuro: Alert and oriented X 3, Normal speech Results - Vitals Vitals: Vital Signs - 24 hr 11/22/21 17:25 Temperature 36.3 C L Heart Rate 80 Respiratory 16 Rate Blood Pressure 136/85 H O2 Saturation 100 Oxygen O2 Source Room air - Labs Labs: Laboratory Tests 11/22/21 17:30 Urine Color LIGHT YELLOW Urine Clarity CLEAR Urine pH 6.0 Ur Specific [place] <=1.005 Urine Protein NEGATIVE Urine Glucose (UA) NEGATIVE Urine Ketones NEGATIVE Urine Occult Blood MODERATE H Urine Nitrite NEGATIVE Urine Bilirubin NEGATIVE Urine Urobilinogen 0.2 (NORMAL) Ur Leukocyte Esterase TRACE H Urine RBC 0-5 Urine WBC 4-5 Ur Squamous Epith Cells FEW Squamous Urine Bacteria Rare Ur Microscopic Review INDICATED Urine Culture Comments INDICATED Urine HCG, Qual NEGATIVE PD MEDICAL DECISION MAKING - ED course ED course: She does not have CVA tenderness but prominent back pain some worried that she might have early pyelonephritis and as such is treated with a slightly broader agent than Macrobid and for a slightly prolonged length of time. She is breast-feeding so no Pyridium. Departure - Departure Disposition: Home, Self Care Clinical Impression: Cystitis Condition: Good Record reviewed to determine appropriate education?: Yes Instructions: ED UTI Cystitis Female Prescriptions: Cefdinir 300 mg PO BID #14 cap Comments: I sent your prescription electronically to [facility] in [place]. Return for new or worsening symptoms. We will culture your urine, the results should be done in 48-72 hours. If an antibiotic change is necessary we will call you. Return if worse in the meantime, especially if you develop increasing flank pain, fevers, or cannot keep down the medication. Discharge Date/Time: 11/22/21 17:50
[2021-11-22 18:00] LABS: BILIRUBIN,URINE NEGATIVE (NEGATIVE); GLUCOSE, URINE (UA) NEGATIVE (NEGATIVE); KETONES,URINE (UA) NEGATIVE (NEGATIVE); LEUKOCYTE ESTERASE, URINE TRACE (NEGATIVE); NITRITE,URINE NEGATIVE (NEGATIVE); OCCULT BLOOD,URINE MODERATE (NEGATIVE); PROTEIN,URINE NEGATIVE (NEGATIVE); UROBILINOGEN,URINE 0.2 (NORMAL) E.U./dL (NORMAL)
[2021-11-22 18:03] LABS: CLARITY,URINE CLEAR (CLEAR); HCG UR QUAL NEGATIVE
[2021-11-22 18:09] LABS: BACTERIA,URINE Rare /HPF (None Seen); RBC,URINE 0-5 /HPF (0-5); SQUAMOUS EPITHELIAL CELL,UR FEW Squamous (<= Few)
--- NOTE | 2021-11-25 21:21 | ED Physician Documentation ---
ED Addendum - Addendum Addendum: Patient had contacted the emergency department today regarding her visit. She had requested a call back. I did attempt to call the patient back at approximately 5:30 PM and left a message. No callback received during my shift. 11/25/21
== END 2021-11-22 17:50 | disposition home or self-care (01) ==
LOC: ED 17:23
DX: N30.90 Cystitis, unspecified without hematuria (principal)
CPT/HCPCS: 81001; 81025; 87077; 87086; 99283; A9270; 81003

== ENCOUNTER 2021-12-01 18:38 | Emergency (ER) | payer MEDICAID ==
[2021-12-01 18:46] VITALS: BP 132/80
[2021-12-01 19:07] LABS: BILIRUBIN,URINE NEGATIVE (NEGATIVE); GLUCOSE, URINE (UA) NEGATIVE (NEGATIVE); KETONES,URINE (UA) NEGATIVE (NEGATIVE); LEUKOCYTE ESTERASE, URINE NEGATIVE (NEGATIVE); NITRITE,URINE NEGATIVE (NEGATIVE); OCCULT BLOOD,URINE NEGATIVE (NEGATIVE); PROTEIN,URINE NEGATIVE (NEGATIVE); UROBILINOGEN,URINE 0.2 (NORMAL) E.U./dL (NORMAL)
[2021-12-01 19:08] LABS: CLARITY,URINE CLEAR (CLEAR)
[2021-12-01] MEDS ORDERED: metroNIDAZOLE 250 MG TABLET PO STA (19:23)
--- NOTE | 2021-12-01 19:37 | ED Physician Documentation ---
PD HPI FEMALE - Stated complaint Stated Complaint: FEMALE - Chief complaint Chief Complaint: UTI - History obtained from History obtained from: Patient - History of Present Illness Timing - onset: How many weeks ago (3) Timing - duration: Weeks (3) Timing - details: Gradual onset Pain level max: 3 Pain level max: 2 Associated symptoms: Dysuria, Urinary frequency. No: Fever - Additional information Additional information: Patient is a 41-year-old female who presents to the emergency department complaining of dysuria for the past 3 weeks. She states that she has been seen here as well as her primary care provider. She states that she has been on amoxicillin, cefdinir and now ciprofloxacin. She states her symptoms have not improved. Has mild pelvic and low back pain as well. No fevers. No chills. No vomiting. No changes in sexual partners. No vaginal bleeding or discharge. 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 : None HEENT: None Psych: None Musculoskeletal: None Derm: None - Past Surgical History Past Surgical History: Yes - Present Medications Home Medications: Ambulatory Orders Medication Instructions Recorded Confirmed [place]-3/Dha/Epa/Fish Oil [Fish Oil 1 each PO DAILY 04/11/21 04/11/21 1,000 mg Softgel] Amox/Clav 875/125 [Augmentin] 1 each PO Q12H #14 tablet 06/27/21 Cefdinir 300 mg PO BID #14 cap 11/22/21 metroNIDAZOLE [Flagyl] 500 mg PO BID #14 tablet 12/01/21 - Allergies Allergies/Adverse Reactions: Allergies Allergy/AdvReac Type Severity Reaction Status Date / Time ibuprofen Allergy Anaphylaxis Verified 12/01/21 18:46 Sulfa (Sulfonamide Allergy Anaphylaxis Verified 12/01/21 18:46 Antibiotics) - Social History Does the pt smoke?: No Smoking Status: Never smoker Does the pt drink ETOH?: No Does the pt have substance abuse?: No - Immunizations Immunizations are current?: Yes PD ED PE NORMAL - Vitals Vital signs reviewed: Yes - General General: Alert and oriented X 3, No acute distress - HEENT HEENT: Moist mucous membranes - Neck Neck: Supple, no meningeal sign - Cardiac Cardiac: RRR, Strong equal pulses - Respiratory Respiratory: No respiratory distress, Clear bilaterally - Abdomen Abdomen: Soft, Non tender, Non distended - Female Female : [employer] Team Member present (Katie Donnelly), Other (thin white vaginal discharge. mild erythema of the vaginal shanks. otherwise normal exam. ) - Derm Derm: Warm and dry - Neuro Neuro: Alert and oriented X 3 - Psych Psych: Normal mood, Normal affect Results - Vitals Vitals: Vital Signs - 24 hr 12/01/21 12/01/21 18:41 19:42 Temperature 36.4 C L Heart Rate 74 70 Respiratory 16 14 Rate Blood Pressure 132/80 H O2 Saturation 100 98 Oxygen O2 Source Room air - Labs Labs: Laboratory Tests 12/01/21 18:55 Urine Color YELLOW Urine Clarity CLEAR Urine pH 6.0 Ur Specific [place] <=1.005 Urine Protein NEGATIVE Urine Glucose (UA) NEGATIVE Urine Ketones NEGATIVE Urine Occult Blood NEGATIVE Urine Nitrite NEGATIVE Urine Bilirubin NEGATIVE Urine Urobilinogen 0.2 (NORMAL) Ur Leukocyte Esterase NEGATIVE Ur Microscopic Review NOT INDICATED Urine Culture Comments NOT INDICATED PD MEDICAL DECISION MAKING - ED course Complexity details: reviewed old records, reviewed results, re-evaluated patient, considered differential, d/w patient ED course: Patient is a 41-year-old female who presents with dysuria. Her pelvic exam appears consistent with bacterial vaginitis and so we will treat presumptively for this. Testing was sent for bacterial vaginitis as well as gonorrhea and chlamydia. Does not have risk factors for these. She has been on multiple oral antibiotics without relief of symptoms. Urinalysis is clear here tonight. Reviewed her prior culture which did not reveal any significant infection. I will follow-up on her tests tonight or tomorrow when they return and call the patient with her results. Patient counseled regarding signs and symptoms for which I believe and urgent re-evaluation would be necessary. Patient with good understanding of and agreement to plan and is comfortable going home at this time This document was made in part using voice recognition software. While efforts are made to proofread this document, sound alike and grammatical errors may occur. Departure - Departure Disposition: 01 Home, Self Care Clinical Impression: Bacterial vaginitis Condition: Good Instructions: ED Vaginosis Bacterial Follow-Up: Kelley dHz MD [Primary Care Provider] - Within 1 week Prescriptions: metroNIDAZOLE [Flagyl] 500 mg PO BID #14 tablet Comments: Your [facility] to [facility] in [place]. I will follow-up your test results when they are available either tonight or tomorrow. I will call you and let you know the results. Your urinalysis does not show any evidence of infection today. We will treat you presumptively for bacterial vaginitis. If your testing is negative and your symptoms do not improve, the next step would likely be a pelvic ultrasound versus a urology consult. Please follow-up with your doctor for further care. Discharge Date/Time: 12/01/21 19:46
[2021-12-01 21:13] LABS: BACTERIAL VAGINOSIS DNA NEGATIVE (NEGATIVE); CANDIDA GLABRATA DNA NEGATIVE (NEGATIVE); CANDIDA GROUP DNA NEGATIVE (NEGATIVE); CANDIDA KRUSEI DNA NEGATIVE (NEGATIVE); TRICHOMONAS VAGINALIS DNA NEGATIVE (NEGATIVE)
[2021-12-01 23:00] LABS: CHLAMYDIA TRACHOMATIS DNA NEGATIVE (NEGATIVE); NEISSERIA GONORRHOEAE DNA NEGATIVE (NEGATIVE)
== END 2021-12-01 19:46 | disposition home or self-care (01) ==
LOC: ED 18:38
DX: N76.0 Acute vaginitis (principal)
CPT/HCPCS: 81003; 81514; 87491; 87591; 99282; 99283; A9270; 81001; 87086; 87661

== ENCOUNTER 2022-02-09 16:49 | Outpatient (CLI) | payer MEDICAID ==
--- NOTE | 2022-02-10 13:48 | Ultrasound Report ---
PROCEDURE: OB First Trimester w/TV INDICATIONS: DATING AND VAIBILITY, R ADENXAL MASS OUTSIDE/PRIOR DATING DATA: Last menstrual period (LMP): 12/05/2021. LMP-based estimated date of delivery (NATALY): 09/21/2022. TECHNIQUE: Real-time scanning was performed of the fetus and maternal pelvic organs, with image documentation. Endovaginal scanning was also performed to better visualize the fetus and maternal ovaries. COMPARISON: None FINDINGS: The cervix is closed. No intrauterine is identified. The endometrium is thickene d measuring 2.3 cm. Free fluid is seen within the endometrium. The right ovary measures 6.0 x 4.2 x 5 .9 cm. A right adnexal cyst is seen measuring 4.9 x 4.1 x 4.6 cm with an echogenic avascular circular focus within the cyst measuring 1.7 x 1.5 x 1.4 cm. No heart beat within this avascular circular foc us is seen. Measurement variability in dating: +/- 4 weeks by LMP, +/- 7 days by mean sac diameter (use before 6 weeks gestation if crown-rump length not able to be measured), +/- 5 days by crown-rump length (6-12 weeks gestation). IMPRESSION: Complex right ovarian cystic mass. Differential diagnosis includes ectopic . Ot her possibilities include a right ovarian cyst or other adnexal cyst. Findings were discussed with Dr Washington Paulson at 1:50 PM on 02/10/2022. Reviewed by: Boyd Neumann on 02/10/2022 1:46 PM PDT Approved by: Boyd Neumann on 02/10/2022 1:46 PM PDT Station ID: [id number]
== END 2022-02-09 16:50 | disposition home or self-care (01) ==
LOC: DI 16:49
PROVIDERS: ATTEND Student in an Organized Health Care Education/Training Program
DX: Z36.9 Encounter for antenatal screening, unspecified (principal); N83.291 Other ovarian cyst, right side

== ENCOUNTER 2022-02-10 08:34 | Outpatient (CLI) | payer MEDICAID | END 2022-02-10 08:35 | disposition home or self-care (01) | LOC: LAB.S 08:34 | PROVIDERS: ATTEND Student in an Organized Health Care Education/Training Program | DX: Z34.91 Encounter for supervision of normal pregnancy, unspecified, first trimester (principal) | CPT/HCPCS: 36415; 84702 ==

== ENCOUNTER 2022-02-12 10:07 | Outpatient (CLI) | payer MEDICAID | END 2022-02-12 10:08 | disposition home or self-care (01) | LOC: LAB 10:07 | PROVIDERS: ATTEND Student in an Organized Health Care Education/Training Program | DX: Z53.9 Procedure and treatment not carried out, unspecified reason (principal) | CPT/HCPCS: 84702 ==

== ENCOUNTER 2022-02-17 09:25 | Outpatient (CLI) | payer MEDICAID ==
[2022-02-17 14:35] LABS: BILIRUBIN,URINE NEGATIVE (NEGATIVE); GLUCOSE, URINE (UA) NEGATIVE (NEGATIVE); KETONES,URINE (UA) NEGATIVE (NEGATIVE); LEUKOCYTE ESTERASE, URINE NEGATIVE (NEGATIVE); NITRITE,URINE NEGATIVE (NEGATIVE); OCCULT BLOOD,URINE NEGATIVE (NEGATIVE); PROTEIN,URINE NEGATIVE (NEGATIVE); UROBILINOGEN,URINE 0.2 (NORMAL) E.U./dL (NORMAL)
[2022-02-17 14:36] LABS: CLARITY,URINE CLEAR (CLEAR)
[2022-02-17 14:57] LABS: CA 125 16.2 U/mL (0.0-35.0)
[2022-02-17 14:59] LABS: THYROID STIMULATING HORMONE 0.75 uIU/mL (0.34-5.60)
[2022-02-17 15:05] LABS: PROLACTIN 4.94 ng/mL
[2022-02-17 15:27] LABS: FOLLICLE STIMULATING HORMONE 9.38 mIU/mL
[2022-02-18 05:10] LABS: AFP SERUM TUMOR MARKER 7.7 ng/mL (0.0-6.4); ESTRADIOL 91.2 pg/mL (.); PROGESTERONE 0.9 ng/mL (.)
== END 2022-02-17 09:26 | disposition home or self-care (01) ==
LOC: LAB.S 09:25
PROVIDERS: ATTEND Obstetrics & Gynecology
DX: N91.1 Secondary amenorrhea (principal)
CPT/HCPCS: 36415; 81001; 81003; 81599; 82105; 82670; 83001; 83520; 83615; 84144; 84146; 84443; 84702; 86304; 87086

== ENCOUNTER 2022-04-12 09:03 | Outpatient (CLI) | payer MEDICAID | END 2022-04-12 09:04 | disposition home or self-care (01) | LOC: LAB.S 09:03 | PROVIDERS: ATTEND Obstetrics & Gynecology | DX: Z32.01 Encounter for pregnancy test, result positive (principal) | CPT/HCPCS: 36415; 84702 ==

== ENCOUNTER 2022-05-11 12:41 | Outpatient (CLI) | payer MEDICAID ==
[2022-05-11 14:31] LABS: FERRITIN 15.9 ng/mL (11.0-306.8)
[2022-05-11 14:35] LABS: % IRON SATURATION 17 % (20-50); IRON 75 ug/dL (28-170); TOTAL IRON BINDING CAPACITY 434 ug/dL (250-450); TRANSFERRIN 310 mg/dL (192-382)
[2022-05-11 15:02] LABS: THYROID STIMULATING HORMONE 0.03 uIU/mL (0.34-5.60)
[2022-05-11 15:37] LABS: FREE T4 (FREE THYROXINE) 1.07 ng/dL (0.58-1.64)
== END 2022-05-11 12:42 | disposition home or self-care (01) ==
LOC: LAB 12:41
PROVIDERS: ATTEND Student in an Organized Health Care Education/Training Program
DX: Z34.91 Encounter for supervision of normal pregnancy, unspecified, first trimester (principal)
CPT/HCPCS: 36415; 82728; 83540; 84439; 84443; 84466; 84702

== ENCOUNTER 2022-07-12 09:46 | Outpatient (CLI) | payer MEDICAID ==
[2022-07-12 15:40] LABS: THYROID STIMULATING HORMONE 0.32 uIU/mL (0.34-5.60)
[2022-07-12 15:42] LABS: FREE T4 (FREE THYROXINE) 0.76 ng/dL (0.58-1.64)
== END 2022-07-12 09:47 | disposition home or self-care (01) ==
LOC: LAB.S 09:46
PROVIDERS: ATTEND Internal Medicine Endocrinology, Diabetes & Metabolism
DX: R94.6 Abnormal results of thyroid function studies (principal)
CPT/HCPCS: 36415; 81599; 83520; 84439; 84443; 84445; 84480